=== PATIENT | female | born 1970 | race Caucasian/White ===

== ENCOUNTER 2018-04-14 09:07 | Emergency (ER) | payer BC, OTHER ==
[~2018-04-14] VITALS: Ht 167.6 cm; Wt 113.4 kg
[2018-04-14 09:15] VITALS: BP 134/114
[2018-04-14] MEDS ORDERED: IBUPROFEN 800 MG TAB PO ONE ×2 (09:28→09:30)
[2018-04-14] MEDS ORDERED: SILVER SULFADIAZINE 1 % TOPICAL CREAM 50GM TOP ONE (09:30)
== END 2018-04-14 09:59 | disposition home or self-care (01) ==
LOC: ER 09:07
DX: T23.112A Burn of first degree of left thumb (nail), initial encounter (principal); E11.9 Type 2 diabetes mellitus without complications; I10 Essential (primary) hypertension; X11.8XXA Contact with other hot tap-water, initial encounter; Y93.89 Activity, other specified; Y99.8 Other external cause status; Y92.89 Other specified places as the place of occurrence of the external cause